=== PATIENT | female | born 1935 ===

== ENCOUNTER 2021-11-26 12:55 | Emergency (ER) | payer SELFPAY ==
--- NOTE | 2021-11-26 14:12 | Emergency Department Report ---
Blank Doc - Documentation Documentation: 86-year-old female that presents with generalized weakness x 1 day. Exam: no neuro deficient noted. No one sided weakness. 1- This is a initial triage assessment/medical screening only. Full assessment and work-up will be completed once the patient is in proper hospital gown, ED bed and in a private room setting. This initial assessment/diagnostic orders/clinical plan/ treatment(s) is/are subject to change based on pt's health status, clinical progression and re-assessment by fellow clinical providers in the ED. Further treatment and workup at subsequent clinical providers discretion. Patient/guardians urged not to elope from ED as their condition may be serious if not clinically assessed and managed. 2-labs 3-EKG The patient was evaluated in the emergency department for symptoms described in the history of present illness. He/she was evaluated in the context of the global COVID-19 pandemic, which necessitated consideration that the patient might be at risk for infection with the virus that causes COVID-19. Institutional protocols and algorithms that pertain to the evaluation of patients at risk for COVID-19 are in a state of rapid change based on information released by regulatory bodies including the CDC and federal and state organizations. These policies and algorithms were followed during the patient's care in the emergency department. Please note that these policies, procedures and recommendations changed on a rapid basis.
[2021-11-26 14:14] VITALS: BP 221/94
--- NOTE | 2021-11-26 15:05 | XRay Report ---
CHEST 1 VIEW INDICATION: Weakness. COMPARISON: None FINDINGS: SUPPORT DEVICES: None. HEART: Within normal limits. LUNGS/PLEURA: No acute air space or interstitial disease. ADDITIONAL FINDINGS: None. IMPRESSION: 1. No acute findings. Signer Name: Joselo Caputo MD Signed: 11/26/2021 3:01 PM Workstation Name: [email or web address]
[2021-11-26 15:14] LABS: Basophils % (Auto) 0.4 % (0.0-1.8); Eosinophils % (Auto) 0.3 % (0.0-4.3); Hematocrit 46.9 % (30.3-42.9); Hemoglobin 15.1 gm/dl (10.1-14.3); Lymphocytes # (Auto) 2.2 K/mm3 (1.2-5.4); Lymphocytes % (Auto) 23.2 % (13.4-35.0); Mean Corpuscular HGB Conc 32 % (30-34); Mean Corpuscular Volume 73 fl (79-97); Monocytes # (Auto) 0.9 K/mm3 (0.0-0.8); Platelet Count 334 K/mm3 (140-440); Red Blood Count 6.45 M/mm3 (3.65-5.03); Red Cell Distribution Width 16.7 % (13.2-15.2)
[2021-11-26 15:23] LABS: INR 1.01 (0.87-1.13)
[2021-11-26 16:04] LABS: Alanine Aminotransferase 11 units/L (7-56); Albumin 4.5 g/dL (3.9-5); BUN/Creatinine Ratio 21; Blood Urea Nitrogen 17 mg/dL (7-17); Calcium 10.4 mg/dL (8.4-10.2); Hemolysis Index 6
--- NOTE | 2021-11-27 08:38 | Electrocardiograph Report ---
[facility] Test Date: 2021-11-26 Test Time: 14:22:27 Pat Name: SID SAHU Department: Room: Gender: F Histology Tech: DEVAN : 1935 Requested By: LIZBETH LEE Order Number: [id number] Reading MD: Dom Diaz Measurements Intervals Painter Rate: 106 P: 28 MS: 172 QRS: -5 QRSD: 80 T: 54 QT: 340 QTc: 451 Interpretive Statements Sinus tachycardia Probable left atrial enlargement Left ventricular hypertrophy No previous ECG available for comparison Electronically Signed On 11-27-2021 8:37:50 EDT by Dom Diaz
== END 2021-11-27 15:14 | disposition left against medical advice (07) ==
LOC: ED 12:55
DX: R53.1 Weakness (principal); R20.0 Anesthesia of skin; Z53.21 Procedure and treatment not carried out due to patient leaving prior to being seen by health care provider
CPT/HCPCS: 36415; 71045; 80053; 82550; 83735; 84484; 85025; 85610; 85730; 93005